=== PATIENT | female | born 1990 | race African-American/Black ===

== ENCOUNTER 2016-10-23 14:35 | Emergency (ER) | payer BC ==
[2016-10-23] MEDS ORDERED: ACETAMINOPHEN 325 MG TABLET PO ONE (14:48)
[2016-10-23] MEDS ORDERED: NORMAL SALINE 1000 ML 1,000 ML IV ONE ×2 (14:55→16:28)
[2016-10-23] MEDS ORDERED: IBUPROFEN 800 MG TABLET PO ONE (14:55)
[2016-10-23] MEDS ORDERED: ONDANSETRON HCL INJ/PF 4 MG/2 ML SDV IV ONE (14:55)
--- NOTE | 2016-10-23 15:09 | ER Document Report ---
ED Fever - General Mode of Arrival: Ambulatory Information source: Patient TRAVEL OUTSIDE OF THE [place] IN LAST 30 DAYS: No - HPI Onset: Yesterday Onset/Duration: Gradual Quality of pain: Achy Pain Level: 4 Associated symptoms: Body/muscle aches, Fever, Nausea, Sweating. denies: Chest pain, Nonproductive cough, Productive cough, Diarrhea, Vomiting, Sore throat Similar symptoms previously: No Recently seen / treated by doctor: No <ISSA PERES - Last Filed: 10/23/16 19:28> <YOMAIRA EATON - Last Filed: 10/23/16 21:28> - General Chief Complaint: Fever Stated Complaint: ABDOMINAL PAIN Time Seen by Provider: 10/23/16 14:54 Notes: Presents complaining of fever and abdominal pain that started yesterday. Patient presents complaining of abdominal pain, back pain, fever and chills. Patient denies any cough or cold symptoms. Patient denies any vomiting. Patient denies any urinary symptoms. Patient denies any sick contacts. (ISSA PERES) - Related Data Allergies/Adverse Reactions: red dye [Red Dye] Allergy (Verified 10/23/16 14:46) Past Medical History - General Information source: Patient - Social History Smoking Status: Never Smoker Chew tobacco use (# tins/day): No Frequency of alcohol use: None Drug Abuse: None Occupation: assistant food service manager Lives with: Family Family History: Reviewed & Not Pertinent Patient has suicidal ideation: No Patient has homicidal ideation: No - Past Medical History Cardiac Medical History: Reports: Hx Hypertension Pulmonary Medical History: Denies: Hx Tuberculosis Renal/ Medical History: Reports: Hx Ovarian Cysts. Denies: Hx Peritoneal Dialysis Malignancy Medical History: Surgical Hx: Negative - Immunizations Hx Diphtheria, Pertussis, Tetanus Vaccination: Yes <ISSA PERES - Last Filed: 10/23/16 19:28> Review of Systems - Review of Systems Constitutional: Fever. denies: Recent illness EENT: No symptoms reported. denies: Nose congestion, Nose discharge, Throat pain Cardiovascular: No symptoms reported. denies: Chest pain Respiratory: No symptoms reported. denies: Cough, Short of breath Gastrointestinal: Abdominal pain, Nausea. denies: Diarrhea, Vomiting Genitourinary: No symptoms reported. denies: Dysuria, Flank pain Female Genitourinary: No symptoms reported. denies: , Vaginal discharge , Vaginal bleeding Musculoskeletal: Back pain Skin: No symptoms reported Hematologic/Lymphatic: No symptoms reported Neurological/Psychological: No symptoms reported <ISSA PERES - Last Filed: 10/23/16 19:28> Physical Exam - General General appearance: Alert In distress: Mild - HEENT Head: Normocephalic, Atraumatic Eyes: Normal Conjunctiva: Normal Nasal: Normal Mouth/Lips: Normal Mucous membranes: Dry Pharynx: Normal. No: Erythema, Exudate, Retropharyngeal abscess Neck: Normal, Supple. No: Lymphadenopathy, Meningismus - Respiratory Respiratory status: No respiratory distress Chest status: Nontender Breath sounds: Normal. No: Rales, Rhonchi, Stridor, Wheezing Chest palpation: Normal - Cardiovascular Rhythm: Tachycardia Heart sounds: S1 appreciated, S2 appreciated Murmur: No - Back Back: CVA tenderness - right mildly tender - Extremities General upper extremity: Normal inspection, Normal ROM General lower extremity: Normal inspection, Normal ROM - Neurological Neuro grossly intact: Yes Cognition: Normal Orientation: AAOx4 [place] Coma Scale Eye Opening: Spontaneous [place] Coma Scale Verbal: Oriented [place] Coma Scale Motor: Obeys Commands [place] Coma Scale Total: 15 - Psychological Associated symptoms: Normal affect, Normal mood - Skin Skin Temperature: Warm <ISSA PERES - Last Filed: 10/23/16 19:28> Course - Laboratory Result Diagrams: 10/23/16 15:25 10/23/16 16:25 <ISSA PERES - Last Filed: 10/23/16 19:28> - Laboratory Result Diagrams: 10/23/16 15:25 10/23/16 16:25 <YOMAIRA EATON - Last Filed: 10/23/16 21:28> - Re-evaluation Re-evalutation: 10/23/16 17:53 Patient is yet to go to ultrasound. RN advised of need for repeated vitals. Patient requesting additional pain medication. 10/23/16 19:31 bedside report and hand off given to ISSA Faye) 10/23/16 21:20 Patient is currently an afebrile, well-hydrated, 26-year-old female who presents to the ED with patient able to tolerate p.o. intake. Abdominal pain not otherwise specified and fever of unknown origin. CBC, CMP, urine, lipase, chest x-ray were unremarkable for acute pathology at this time. Abdominal ultrasound did show some gallbladder sludge with a negative Tay. Reviewed case with Dr. Su who is in agreement with discharge/plan. Low suspicion for any acute appendicitis, bowel obstruction, acute cholecystitis, acute cholangitis, perforated diverticulitis, incarcerated hernia, pancreatitis, perforated ulcer, peritonitis, sepsis, or other acute abdomen at this time. Patient is aware that condition can change from initial presentation and she needs to monitor symptoms closely and seek medical attention if any acute changes. Patient has no new concerns or complaints at this time. Her body aches have improved with a decrease in her temperature. I will send her home with Zantac and Zofran to take as directed/needed. Recommend consult with general surgery for further evaluation of the ultrasound results. Consider consult GI. Recheck with your PCM in 2-3 days. Return to the ED with any worsening/concerning symptoms otherwise as reviewed discharge. Patient is in agreement. (YOMAIRA EATON) - Vital Signs Vital signs: Temp Pulse Resp BP Pulse Ox 98.9 F 103 H 18 124/72 98 10/23/16 17:52 10/23/16 17:52 10/23/16 17:52 10/23/16 17:52 10/23/16 17:52 - Laboratory Laboratory results interpreted by me: 10/23/16 10/23/16 10/23/16 15:25 15:25 15:53 Hct 35.7 L Seg Neutrophils % 78.7 H Lymphocytes % 7.9 L Monocytes % 13.1 H Potassium Lipase 22.3 L Urine Ketones 80 H Urine Blood SMALL H Urine Urobilinogen 2.0 H 10/23/16 16:25 Hct Seg Neutrophils % Lymphocytes % Monocytes % Potassium 3.5 L Lipase Urine Ketones Urine Blood Urine Urobilinogen Discharge <ISSA PERES - Last Filed: 10/23/16 19:28> <YOMAIRA EATON - Last Filed: 10/23/16 21:28> - Discharge Clinical Impression: Fever, unspecified Abdominal pain Qualifiers: Abdominal location: upper abdomen, unspecified Qualified Code(s): R10.10 - Upper abdominal pain, unspecified Condition: Stable Disposition: HOME, SELF-CARE Instructions: Abdominal Pain ([facility]), Gallbladder Disease ([facility]), Antinausea Medication ([facility]), Fever ([facility]) Additional Instructions: Maintain adequate fluid/food intake Take medication as directed Lwjy-[id number] meds as needed Brat diet-bananas, rice, apples, toast, etc.- Call the general surgeon to set up an appointment for further evaluation Consider consult with gastroenterology for ongoing/worsening symptoms as well Recheck with your PCM in 2-3 days Return to the ED with any worsening symptoms and/or development of fever, headache, chest pain, palpitations, syncope, shortness of breath, trouble breathing, worsening abdominal pain, n/v/d, blood in stool/urine, loss of control of bowel/bladder, urinary retention, muscle weakness/paralysis, saddle anesthesia, numbness/tingling, or other worsening symptoms that are concerning to you. Prescriptions: Ondansetron [Zofran Odt 4 mg Tablet] 1 - 2 tab PO Q4H PRN #15 tab.rapdis PRN Reason: For Nausea/Vomiting Ranitidine HCl [Zantac] 150 mg PO BID #30 tablet Referrals: EMELIA MULLINS MD [ACTIVE STAFF] - Follow up as needed JUAN CARLOS ELAVITT MD [ACTIVE STAFF] - Follow up in 3-5 days
[2016-10-23 15:57] LABS: ABSOLUTE LYMPHOCYTES (AUTO) 0.6 10^3/uL (0.5-4.7); BASOPHILS % (AUTO) 0.3 % (0-2); HEMATOCRIT 35.7 % (36.0-47.0); HEMOGLOBIN 12.2 g/dL (12.0-15.5); HGB HCT DIFFERENCE 0.9; LYMPHOCYTES % (AUTO) 7.9 % (13-45); MEAN CORPUSCULAR HEMOGLOBIN 30.6 pg (27.0-33.4); MEAN CORPUSCULAR HGB CONC 34.3 g/dL (32.0-36.0); MEAN CORPUSCULAR VOLUME 89 fl (80-97); MONOCYTES % (AUTO) 13.1 % (3-13); RED CELL DISTRIBUTION WIDTH 12.8 % (11.5-14.0); SEGMENTED NEUTROPHILS % (AUTO) 78.7 % (42-78); VENOUS BLOOD BASE EXCESS -1.8 mmol/L; VENOUS BLOOD HCO3 22.9 mmol/L (20-32); VENOUS BLOOD PCO2 38.2 mmHg (35-63); VENOUS BLOOD PH 7.4 (7.30-7.42); WHITE BLOOD COUNT 7.6 10^3/uL (4.0-10.5)
--- NOTE | 2016-10-23 16:03 | RADIOLOGY REPORT (SQ) ---
EXAM DESCRIPTION: CHEST PA/LAT COMPLETED DATE/TIME: 10/23/2016 3:45 pm REASON FOR STUDY: fever COMPARISON: December 2011 EXAM PARAMETERS: NUMBER OF VIEWS: two views TECHNIQUE: Digital Frontal and Lateral radiographic views of the chest acquired. RADIATION DOSE: NA LIMITATIONS: none FINDINGS: LUNGS AND PLEURA: No opacities, masses or pneumothorax. No pleural effusion. MEDIASTINUM AND HILAR STRUCTURES: No masses or contour abnormalities. HEART AND VASCULAR STRUCTURES: Heart normal size. No evidence for failure. BONES: No acute findings. HARDWARE: None in the chest. OTHER: No other significant finding. IMPRESSION: NO SIGNIFICANT RADIOGRAPHIC FINDING IN THE CHEST. TECHNICAL DOCUMENTATION: JOB ID: [id number] [employer]- All Rights Reserved
[2016-10-23 16:13] LABS: APPEARANCE,URINE SLIGHTLY-CLOUDY; BILIRUBIN,URINE NEGATIVE (NEGATIVE); GLUCOSE, URINE NEGATIVE (NEGATIVE); KETONES,URINE 80 mg/dL (NEGATIVE); LEUKOCYTE ESTERASE,URINE NEGATIVE (NEGATIVE); NITRITE,URINE NEGATIVE (NEGATIVE); PROTEIN,URINE NEGATIVE (NEGATIVE); URINE SPECIFIC GRAVITY 1.029
[2016-10-23 16:54] LABS: ALANINE AMINOTRANSFERASE 23 U/L (9-52); ALBUMIN 3.9 g/dL (3.5-5.0); ALKALINE PHOSPHATASE 84 U/L (38-126); ANION GAP 11 (5-19); ASPARTATE AMINO TRANSFERASE 16 U/L (14-36); BILIRUBIN,DIRECT 0.3 mg/dL (0.0-0.4); BILIRUBIN,TOTAL 0.6 mg/dL (0.2-1.3); BLOOD UREA NITROGEN 9 mg/dL (7-20); CALCIUM 8.5 mg/dL (8.4-10.2); CARBON DIOXIDE 22 mmol/L (22-30); CHLORIDE 105 mmol/L (98-107); CREATININE RESULT 0.56 mg/dL (0.52-1.25); GLUCOSE 90 mg/dL (75-110); POTASSIUM 3.5 mmol/L (3.6-5.0); SODIUM 137.6 mmol/L (137-145); TOTAL PROTEIN 7.4 g/dL (6.3-8.2)
[2016-10-23] MEDS ORDERED: MORPHINE SULFATE 10 MG/ML INJ IV ONE (17:52)
[2016-10-23] MEDS ORDERED: POTASSIUM CHLORIDE 10 MEQ TABLET.SA PO ONE (17:52)
--- NOTE | 2016-10-23 19:15 | RADIOLOGY REPORT (SQ) ---
EXAM DESCRIPTION: U/S ABDOMEN LIMITED W/O DOP COMPLETED DATE/TIME: 10/23/2016 6:45 pm REASON FOR STUDY: epig abd pain, r flank pain COMPARISON: None. TECHNIQUE: Dynamic and static grayscale images acquired of the abdomen and recorded on PACS. Additio nal selected color Doppler and spectral images recorded. LIMITATIONS: None. FINDINGS: PANCREAS: Obscured by overlying bowel gas. LIVER: No masses. Echotexture normal. LIVER VASCULATURE: Normal directional flow of the main portal vein and hepatic veins. GALLBLADDER: No stones. There is gallbladder sludge. ULTRASOUND-DETECTED ALVES'S SIGN: Negative. INTRAHEPATIC DUCTS AND COMMON DUCT: CBD and intrahepatic ducts normal caliber. No filling defects. INFERIOR VENA CAVA: Normal flow. AORTA: The majority aorta is obscured by overlying bowel gas. RIGHT KIDNEY: There is a prominent extrarenal pelvis on the right. No hydronephrosis. PERITONEAL AND RIGHT PLEURAL SPACE: No ascites or effusions. OTHER: No other significant findings. IMPRESSION: Gallbladder sludge. No acute findings. TECHNICAL DOCUMENTATION: JOB ID: [id number] [employer]- All Rights Reserved
[2016-10-23 19:44] LABS: ADD ON TESTING BLD IN LAB ACKNOWLEDGE
[2016-10-23 20:00] LABS: LIPASE 22.3 U/L (23-300)
[2016-10-23 21:44] VITALS: BP 121/80
--- NOTE | 2016-10-24 12:56 | EKG REPORT ---
SEVERITY:- OTHERWISE NORMAL ECG - SINUS TACHYCARDIA : Confirmed by: Cooper Soto 24-Oct-2016 12:54:52
== END 2016-10-23 21:46 | disposition home or self-care (01) ==
LOC: ER 14:35
DX: R50.9 Fever, unspecified (principal); K82.8 Other specified diseases of gallbladder; R10.10 Upper abdominal pain, unspecified; R61 Generalized hyperhidrosis; R11.0 Nausea; M54.9 Dorsalgia, unspecified; Z91.048 Other nonmedicinal substance allergy status; I10 Essential (primary) hypertension; Z87.42 Personal history of other diseases of the female genital tract; Z79.1 Long term (current) use of non-steroidal anti-inflammatories (NSAID)
CPT/HCPCS: 93005; 99285; 96361; 96374; 96375; 36415; 87040; 87086; 83690; 84703; 85025; 85610; 80053; 81001; 82803; 83605; 71020; 76705; 93010; J2270; J2405; J7030

== ENCOUNTER 2016-11-12 08:15 | Day surgery (SDC) | payer BC ==
[2016-11-12] MEDS ORDERED: LIDOCAINE 2% INJ-PF (20 MG/ML) 10 ML AMPUL ONE (10:10)
[2016-11-12] MEDS ORDERED: PROPOFOL INJ 200 MG/20 ML VIAL IV ONE (10:10)
[2016-11-12] MEDS ORDERED: ONDANSETRON HCL INJ/PF 4 MG/2 ML SDV ONE (10:10)
[2016-11-12] MEDS ORDERED: MEPERIDINE HCL/PF INJ 25 MG/1 ML DISP.SYRIN IV PRN (10:32)
[2016-11-12] MEDS ORDERED: PROMETHAZINE HCL INJ 25 MG/1 ML VIAL IV PRN ×2 (10:32)
[2016-11-12] MEDS ORDERED: DIPHENHYDRAMINE HCL 50 MG/ML VIAL IV PRN (10:32)
[2016-11-12] MEDS ORDERED: ONDANSETRON HCL INJ/PF 4 MG/2 ML SDV IV PRN (10:32)
[2016-11-12] MEDS ORDERED: FENTANYL CITRATE INJ/PF 100 MCG/2 ML AMPUL IV PRN ×3 (10:32)
--- NOTE | 2016-11-12 11:10 | Operative Report ---
Operative Report DATE OF SURGERY: 11/12/16 Operative Report: The risks, benefits and alternatives of the procedure including risks of bleeding, perforation requiring surgery are explained to the patient detail and informed consent was obtained. Patient is taken back to the operating room and placed in the left, lateral decubital position. Timeout was called. Propofol medications administered. A rectal examination is done which did not reveal any masses, tears or fissures. An Olympus videoscope was inserted into the patient's rectum. Scope was then carefully advanced all the way to the cecum. The cecum was identified by the usual anatomical landmarks including the ileocecal valve as well as the appendiceal office. Photodocumentation was obtained. The scope was then sequentially pulled back via the various segments of the colon including the ascending colon, hepatic flexure, transverse colon, splenic flexure, descending colon and to the rectosigmoid portions of the colon. Retroflexion maneuver was performed. The risks benefits and alternatives of the procedure explained to the patient in detail and informed consent is obtained.A GIF Olympus video scope was inserted into the patient's mouth and hypopharynx, the esophagus is identified intubated and insufflated ,the scope was then advanced through the esophagus stomach and duodenum ,retroflexion maneuver is done, the esophagus stomach and first and second portions of the duodenum examined PREOPERATIVE DIAGNOSIS: Epigastric pain rule out peptic ulcer disease. Change in bowel habits. Blood in stool POSTOPERATIVE DIAGNOSIS: Mild right side inflammation status post biopsy. Internal hemorrhoids. Mild gastritis status post biopsy rule out Helicobacter pylori OPERATION: Colonoscopy with biopsy. EGD with biopsy SURGEON: EMELIA MULLINS ANESTHESIA: LMAC TISSUE REMOVED OR ALTERED: As discussed above. COMPLICATIONS: None. ESTIMATED BLOOD LOSS: None. INTRAOPERATIVE FINDINGS: As described above. PROCEDURE: Patient tolerated procedure well. No immediate postprocedure complications are noted. Patient discharged in good condition. Discharge date 11/12/2016. Discharge diet: Regular. Discharge activity: Regular. 2-3 week follow-up to discuss findings. Patient is instructed to call the office or proceed to the emergency room should there be any further problems or questions. We will wait on pathology.
[2016-11-12 12:30] VITALS: BP 140/86
== END 2016-11-12 12:30 | disposition home or self-care (01) ==
LOC: OROUT 08:15
PROVIDERS: ATTEND Internal Medicine Gastroenterology
PROC: 0DB68ZX Excision of Stomach, Via Natural or Artificial Opening Endoscopic, Diagnostic (ICD-10-PCS; principal; 2016-11-12 10:00)
PROC: 0DBF8ZX Excision of Right Large Intestine, Via Natural or Artificial Opening Endoscopic, Diagnostic (ICD-10-PCS; 2016-11-12 10:00)
DX: K52.9 Noninfective gastroenteritis and colitis, unspecified (principal); K64.8 Other hemorrhoids; K29.70 Gastritis, unspecified, without bleeding; K82.8 Other specified diseases of gallbladder; D64.9 Anemia, unspecified; K21.9 Gastro-esophageal reflux disease without esophagitis; Z79.899 Other long term (current) drug therapy
CPT/HCPCS: 43239; 45380; 81025; 88342 ×2; 88305 ×2; J2405; J2704; J3490; 740

== ENCOUNTER → 2017-09-30 | Outpatient (CLI) | payer BC ==
[2017-09-30 12:00] LABS: INTERNATIONAL RATION (INR) 1.01; PROTHROMBIN TIME 13.8 SEC (11.4-15.4)
[2017-09-30 12:01] LABS: PARTIAL THROMBOPLASTIN TIME 31.1 SEC (23.5-35.8)
== END ==
LOC: OD 10:41
PROVIDERS: ATTEND Obstetrics & Gynecology
DX: R23.3 Spontaneous ecchymoses (principal)
CPT/HCPCS: 36415; 85610; 85730

== ENCOUNTER 2018-05-23 07:45 | Emergency (ER) | payer BC ==
--- NOTE | 2018-05-23 08:06 | ER Document Report ---
ED GI/ - General Chief Complaint: Pelvic Pain Stated Complaint: PELVIC PAIN, BACK PAIN Time Seen by Provider: 05/23/18 08:04 Primary Care Provider: ARJUN DELGADO MD [Primary Care Provider] - Follow up as needed Mode of Arrival: Ambulatory Information source: Patient Notes: Patient is a 28-year-old female, G0 who presents to the ER today for left-sided pelvic pain/lower abdominal pain. Patient states that she was diagnosed with a left ovarian cyst 2 days ago at the [facility], she comes in for continued pain. She states that they gave her naproxen and she has been taking that. She denies any abnormal vaginal discharge, vaginal bleeding, fevers or chills, nausea or vomiting. TRAVEL OUTSIDE OF THE [place] IN LAST 30 DAYS: No - Related Data Allergies/Adverse Reactions: red dye [Red Dye] Allergy (Verified 10/23/16 14:46) Past Medical History - General Information source: Patient - Social History Smoking Status: Unknown if Ever Smoked Family History: Reviewed & Not Pertinent - Past Medical History Cardiac Medical History: Denies: Hx Coronary Artery Disease, Hx Heart Attack, Hx Hypertension Pulmonary Medical History: Denies: Hx Asthma, Hx Bronchitis, Hx COPD, Hx Pneumonia, Hx Tuberculosis Neurological Medical History: Denies: Hx Cerebrovascular Accident, Hx Seizures Renal/ Medical History: Reports: Hx Ovarian Cysts. Denies: Hx Peritoneal Dialysis Malignancy Medical History: Musculoskeletal Medical History: Denies Hx Arthritis Past Surgical History: Denies: Hx Appendectomy, Hx Bowel Surgery, Hx Section, Hx Cholecystectomy, Hx Coronary Artery Bypass Graft, Hx Gastric Bypass Surgery, Hx Herniorrhaphy, Hx Hysterectomy, Hx Mastectomy, Hx Pacemaker, Hx Tonsillectomy, Hx Tubal Ligation - Immunizations Hx Diphtheria, Pertussis, Tetanus Vaccination: Yes Review of Systems - Review of Systems Constitutional: No symptoms reported EENT: No symptoms reported Cardiovascular: No symptoms reported Respiratory: No symptoms reported Gastrointestinal: No symptoms reported Genitourinary: No symptoms reported Female Genitourinary: See HPI Musculoskeletal: No symptoms reported Skin: No symptoms reported Hematologic/Lymphatic: No symptoms reported Neurological/Psychological: No symptoms reported Physical Exam - Vital signs Vitals: Temp Pulse Resp BP Pulse Ox 98.9 F 95 16 131/85 H 100 05/23/18 07:52 05/23/18 07:52 05/23/18 07:52 05/23/18 07:52 05/23/18 07:52 - Notes Notes: PHYSICAL EXAMINATION: GENERAL: Uncomfortable appearing, but in no acute distress. HEAD: Atraumatic, normocephalic. EYES: Pupils equal round and reactive to light, extraocular movements intact, sclera anicteric, conjunctiva are normal. NECK: Normal range of motion, supple without lymphadenopathy LUNGS: CTAB and equal. No wheezes rales or rhonchi. HEART: Regular rate and rhythm without murmurs ABDOMEN: Soft, left lower quadrant tenderness. No guarding, no rebound Pelvic: Normal-appearing cervix, white discharge vaginal canal, no rash, no cervical motion tenderness, left adnexal tenderness BACK: no vertebral tenderness, normal ROM GI/: no CVA tenderness EXTREMITIES: Normal range of motion, no pitting edema. No cyanosis. NEUROLOGICAL: Cranial nerves grossly intact. Normal sensory/motor exams. PSYCH: Normal mood, normal affect. SKIN: Warm, Dry, normal turgor, no rashes or lesions noted Course - Re-evaluation Re-evalutation: 05/23/18 10:32 Ultrasound reveals a left ovarian cyst, simple, complex right ovarian cyst, she is not having any pain on the right side, patient is asleep when I walked into the room, I startled her awake by walking and then she starts shaking all over, she has been shaking every time I walk into the room on this visit. I am not sure why she is shaking her legs so much, I did ask her why she shakes when I walk into the room when I can obviously see that she is not shaking walking by the room, she does not have an answer for this. I advised that she follow-up with [facility] tomorrow. Wet prep negative, gonorrhea and chlamydia negative. Urinalysis negative for sign of infection. negative. - Vital Signs Vital signs: Temp Pulse Resp BP Pulse Ox 98.9 F 95 16 131/85 H 100 05/23/18 07:52 05/23/18 07:52 05/23/18 07:52 05/23/18 07:52 05/23/18 07:52 - Laboratory Laboratory results interpreted by me: 05/23/18 08:05 Urine Blood SMALL H Discharge - Discharge Clinical Impression: Left ovarian cyst, Right ovarian cyst Condition: Stable Disposition: HOME, SELF-CARE Additional Instructions: Return immediately for any new or worsening symptoms. Follow up with primary care provider, call tomorrow to make followup yoan ointment. Prescriptions: Ibuprofen [Motrin 600 Mg Tablet] 600 mg PO TID #15 tablet Referrals: ARJUN DELGADO MD [Primary Care Provider] - Follow up as needed
[2018-05-23] MEDS ORDERED: IBUPROFEN 800 MG TABLET PO ONE (08:28)
[2018-05-23 08:33] LABS: T.VAGINALIS (WET MOUNT) NO TRICHOMONAS SEEN; WBCS (WET MOUNT) FEW WBCS SEEN; YEAST (WET MOUNT) NO YEAST SEEN
[2018-05-23 08:39] LABS: APPEARANCE,URINE CLEAR; BILIRUBIN,URINE NEGATIVE (NEGATIVE); COLOR,URINE YELLOW; GLUCOSE, URINE NEGATIVE (NEGATIVE); KETONES,URINE NEGATIVE (NEGATIVE); LEUKOCYTE ESTERASE,URINE NEGATIVE (NEGATIVE); NITRITE,URINE NEGATIVE (NEGATIVE); PROTEIN,URINE NEGATIVE (NEGATIVE); URINE SPECIFIC GRAVITY 1.012; UROBILINOGEN,URINE NEGATIVE mg/dL (<2.0)
--- NOTE | 2018-05-23 10:23 | RADIOLOGY REPORT (SQ) ---
EXAM DESCRIPTION: U/S NON-OB PELVIS TV W/O DOP COMPLETED DATE/TIME: 05/23/2018 9:51 am REASON FOR STUDY: worsening llq pain after being diagnosed with cyst COMPARISON: 11/15/2015 TECHNIQUE: Dynamic and static grayscale images acquired of the pelvis via transvaginal approach and recorded on PACS. Additional selected color Doppler and spectral images recorded. LIMITATIONS: None. FINDINGS: UTERUS: Contour normal. No mass. ENDOMETRIAL STRIPE: No focal or generalized thickening. No masses. CERVIX: No nabothian cysts. RIGHT OVARY AND DOPPLER: Thick-walled cystic lesion with internal septations measuring about 4.2 x 3. 3 x 3.5 cm. Normal arterial flow. LEFT OVARY AND DOPPLER: 3.7 x 2.5 x 2.5 cm simple appearing cyst. Normal arterial flow. FREE FLUID: Small amount right adnexum. OTHER: No other significant finding. MEASUREMENTS: UTERUS: 7.1 x 3.5 x 5.3 cm ENDOMETRIAL STRIPE: 6 mm RIGHT OVARY: 5.6 x 4.2 x 4.7 cm LEFT OVARY: 5.2 x 2.8 x 3.3 cm IMPRESSION: Simple cyst left ovary. Complex cyst right ovary. TECHNICAL DOCUMENTATION: JOB ID: [id number] [employer]- All Rights Reserved Rev-07/31 Reading location - IP/workstation name: [email or web address]
[2018-05-23 10:25] LABS: CHLAM PCR NOT DETECTED (NOT DETECT); GON PCR NOT DETECTED (NOT DETECT)
[2018-05-23 10:41] VITALS: BP 114/83
== END 2018-05-23 10:41 | disposition home or self-care (01) ==
LOC: ER 07:45
DX: N83.202 Unspecified ovarian cyst, left side (principal); N83.201 Unspecified ovarian cyst, right side; R10.2 Pelvic and perineal pain; R10.30 Lower abdominal pain, unspecified
CPT/HCPCS: 76830; 81001; 81025; 87210; 87491; 87591; 99284

== ENCOUNTER → 2018-09-30 | Outpatient (CLI) | payer BC ==
--- NOTE | 2018-09-30 08:24 | WOMENS IMAGING REPORT ---
EXAM DESCRIPTION: U/S ABDOMEN LIMITED COMPLETED DATE/TIME: 09/30/2018 8:13 am REASON FOR STUDY: R10.13 EPIGASTRIC PAIN R10.13 EPIGASTRIC PAIN COMPARISON: CT abdomen pelvis 10/21/2011, abdominal ultrasound 10/23/2016 hazy previously used TECHNIQUE: Dynamic and static grayscale images acquired of the abdomen and recorded on PACS. Additio nal selected color Doppler and spectral images recorded. LIMITATIONS: Midline bowel gas. FINDINGS: PANCREAS: Midline pancreas unremarkable LIVER: No masses. Echotexture normal. LIVER VASCULATURE: Normal directional flow of the main portal vein and hepatic veins. GALLBLADDER: No stones. Normal wall thickness. No pericholecystic fluid. ULTRASOUND-DETECTED ALVES'S SIGN: Negative. INTRAHEPATIC DUCTS AND COMMON DUCT: CBD and intrahepatic ducts normal caliber. No filling defects. INFERIOR VENA CAVA: Not well seen AORTA: Not well seen RIGHT KIDNEY: Normal size. Normal echogenicity. No solid or suspicious masses. No hydronephrosis. No calcifications. PERITONEAL AND RIGHT PLEURAL SPACE: No ascites or effusions. OTHER: No other significant findings. IMPRESSION: NORMAL RIGHT UPPER QUADRANT ULTRASOUND. TECHNICAL DOCUMENTATION: JOB ID: [id number] [employer]- All Rights Reserved Reading location - IP/workstation name: [email or web address]
== END ==
LOC: WI 07:50
PROVIDERS: ATTEND Internal Medicine Gastroenterology
DX: R10.13 Epigastric pain (principal)
CPT/HCPCS: 76705

== ENCOUNTER 2019-11-17 16:54 | Emergency (ER) | payer BC ==
[2019-11-17] MEDS ORDERED: ACETAMINOPHEN 325 MG TABLET PO ONE (18:00)
[2019-11-17] MEDS ORDERED: IBUPROFEN 600 MG TABLET PO ONE (18:00)
--- NOTE | 2019-11-17 18:05 | ER Document Report ---
ED Medical Screen (RME) - General Chief Complaint: Flu Symptoms Stated Complaint: BACK PAIN Time Seen by Provider: 11/17/19 17:55 Primary Care Provider: LYNDSEY KAISER MD [Primary Care Provider] - Follow up as needed Mode of Arrival: Ambulatory Information source: Patient Notes: 29-year-old female patient presented to the emergency department with 1 day history of abdominal pain, back pain, chills, nausea, vomiting and headache. Patient works in fast food. She does report she had a negative rapid COVID-19 today. Abd soft non-tender. I have greeted and performed a rapid initial assessment of this patient. A comprehensive ED assessment and evaluation of the patient, analysis of test results and completion of the medical decision making process will be conducted by additional ED providers. I have specifically instructed the patient or family members with the patient to immediately return to any nursing staff should anything change in the patient's condition or with their chief complaint. TRAVEL OUTSIDE OF THE [place] IN LAST 30 DAYS: No - Related Data Allergies/Adverse Reactions: red dye [Red Dye] Allergy (Verified 12/27/18 17:41) Past Medical History - Social History Chew tobacco use (# tins/day): No Frequency of alcohol use: None Drug Abuse: None - Past Medical History Cardiac Medical History: Denies: Hx Coronary Artery Disease, Hx Heart Attack, Hx Hypertension Pulmonary Medical History: Denies: Hx Asthma, Hx Bronchitis, Hx COPD, Hx Pneumonia, Hx Tuberculosis Neurological Medical History: Denies: Hx Cerebrovascular Accident, Hx Seizures Renal/ Medical History: Reports: Hx Ovarian Cysts. Denies: Hx Peritoneal Dialysis Malignancy Medical History: Musculoskeltal Medical History: Denies Hx Arthritis Past Surgical History: Reports: Hx Gynecologic Surgery. Denies: Hx Appendectomy, Hx Bowel Surgery, Hx Section, Hx Cholecystectomy, Hx Coronary Artery Bypass Graft, Hx Gastric Bypass Surgery, Hx Herniorrhaphy, Hx Hysterectomy, Hx Mastectomy, Hx Pacemaker, Hx Tonsillectomy, Hx Tubal Ligation - Immunizations Hx Diphtheria, Pertussis, Tetanus Vaccination: Yes Physical Exam - Vital signs Vitals: Temp Pulse Resp BP Pulse Ox 98.7 F 92 16 142/85 H 100 11/17/19 17:13 11/17/19 17:13 11/17/19 17:13 11/17/19 17:13 11/17/19 17:13 Course - Vital Signs Vital signs: Temp Pulse Resp BP Pulse Ox 98.7 F 92 16 142/85 H 100 11/17/19 17:13 11/17/19 17:13 11/17/19 17:13 11/17/19 17:13 11/17/19 17:13 Doctor's Discharge - Discharge Referrals: LYNDSEY KAISER MD [Primary Care Provider] - Follow up as needed
--- NOTE | 2019-11-17 19:06 | ER Document Report ---
ED General - General Chief Complaint: Flu Symptoms Stated Complaint: BACK PAIN Time Seen by Provider: 11/17/19 17:55 Primary Care Provider: LYNDSEY KAISER MD [Primary Care Provider] - Follow up as needed Mode of Arrival: Ambulatory Information source: Patient Notes: 29-year-old female past medical history significant for migraines presents to the emergency room complaining of sharp left flank pain along with general body aches and chills for the past 2 days. Denies any fevers. Denies any urinary symptoms, denies any cough, denies any recent travel. Denies any COVID-19 exposure. States called her primary care physician was referred for a rapid COVID which she states was negative and referred to the emergency room. Has not been taking anything for her symptoms. TRAVEL OUTSIDE OF THE [place] IN LAST 30 DAYS: No - HPI Pain Level: 3 - Related Data Allergies/Adverse Reactions: red dye [Red Dye] Allergy (Verified 11/17/19 19:10) Past Medical History - General Information source: Patient - Social History Smoking Status: Never Smoker Chew tobacco use (# tins/day): No Frequency of alcohol use: None Drug Abuse: None Family History: Reviewed & Not Pertinent - Past Medical History Cardiac Medical History: Denies: Hx Coronary Artery Disease, Hx Heart Attack, Hx Hypertension Pulmonary Medical History: Denies: Hx Asthma, Hx Bronchitis, Hx COPD, Hx Pneumonia, Hx Tuberculosis Neurological Medical History: Denies: Hx Cerebrovascular Accident, Hx Seizures Renal/ Medical History: Reports: Hx Ovarian Cysts. Denies: Hx Peritoneal Dialysis Malignancy Medical History: Musculoskeletal Medical History: Denies Hx Arthritis Past Surgical History: Reports: Hx Gynecologic Surgery. Denies: Hx Appendectomy, Hx Bowel Surgery, Hx Section, Hx Cholecystectomy, Hx Coronary Artery Bypass Graft, Hx Gastric Bypass Surgery, Hx Herniorrhaphy, Hx Hysterectomy, Hx Mastectomy, Hx Pacemaker, Hx Tonsillectomy, Hx Tubal Ligation - Immunizations Hx Diphtheria, Pertussis, Tetanus Vaccination: Yes Review of Systems - Review of Systems Constitutional: Chills, Malaise EENT: No symptoms reported Cardiovascular: No symptoms reported Respiratory: No symptoms reported Gastrointestinal: No symptoms reported Genitourinary: Flank pain Musculoskeletal: Muscle pain Skin: No symptoms reported Neurological/Psychological: No symptoms reported -: Yes All other systems reviewed and negative Physical Exam - Vital signs Vitals: Temp Pulse Resp BP Pulse Ox 98.7 F 92 16 142/85 H 100 11/17/19 17:13 11/17/19 17:13 11/17/19 17:13 11/17/19 17:13 11/17/19 17:13 - Notes Notes: VITAL SIGNS: Within normal limits. GENERAL: Mild acute distress, non-toxic appearance. HEAD: Normal with no signs of head trauma. EYES: PERRLA, EOMI, conjunctiva normal, no discharge. EARS: Hearing grossly intact. NOSE: Normal. THROAT: Oropharynx is normal. NECK: Normal range of motion, no tenderness, supple, no lymphadenopathy, No adenopathy, no JVD. CHEST: Clear breath sounds bilaterally. No wheezes, rales, or rhonchi. CARDIAC: Regular rate and rhythm. S1 and S2, without murmurs, gallops, or rubs. VASCULAR: No Edema. Peripheral pulses normal and equal in all extremities. ABDOMEN: Normal and soft with no tenderness, no masses or pulsatile masses. No organomegaly. Positive bowel sounds x4. Negative for bilateral CVA tenderness. GENITOURINARY: Normal, No tenderness LYMPATHTIC: No lymphadenopathy noted. MUSCULOSKELETAL: Good range of motion of all major joints. Extremities without clubbing, cyanosis or edema. NEUROLOGICAL: Alert and oriented x 3. No focal sensory or strength deficits. Speech normal. Follows commands appropriately. PSYCHIATRIC: Normal Affect, judgement and mood. SKIN: Normal appearance with no rashes or lesions. Course - Re-evaluation Re-evalutation: 11/17/19 20:47 Patient is resting comfortably she is afebrile. She is nontoxic-appearing, she is able to tolerate p.o. fluids. She is pain-free on exam. States she is fee ling better. She was counseled to rest, push fluids, Tylenol and or Motrin as needed for fever and body aches outpatient follow-up with primary care physician if not improving in 2 to 3 days. Patient was given strict return to the emergency room guidelines. Return for any new or worsening symptoms. All questions were answered. Patient verbalized understanding and agrees with plan of care. - Vital Signs Vital signs: Temp Pulse Resp BP Pulse Ox 98.8 F 80 17 132/78 H 100 11/17/19 21:54 11/17/19 21:54 11/17/19 21:54 11/17/19 21:54 11/17/19 21:54 - Laboratory Result Diagrams: 11/17/19 19:20 11/17/19 19:20 Laboratory results interpreted by me: 11/17/19 11/17/19 11/17/19 19:20 19:20 19:20 Hgb 11.7 L Hct 34.8 L Sodium 134.1 L Creatinine 0.51 L Urine Urobilinogen 2.0 H Discharge - Discharge Clinical Impression: Generalized body aches, Viral illness Condition: Stable Disposition: HOME, SELF-CARE Instructions: Viral Syndrome ([facility]) Additional Instructions: Rest, push fluids, Tylenol and/or Motrin as needed for fevers and/or body aches. Follow-up with your primary care physician if not improving in 2 to 3 days. Return to the emergency room for any new or worsening symptoms. Forms: Parent Work Note, Return to Work Referrals: LYNDSEY KAISER MD [Primary Care Provider] - Follow up as needed
[2019-11-17 19:45] LABS: ABSOLUTE BASOPHILS # (AUTO) 0.1 10^3/uL (0.0-0.2); ABSOLUTE LYMPHOCYTES (AUTO) 1.9 10^3/uL (0.5-4.7); ABSOLUTE MONOCYTES (AUTO) 0.8 10^3/uL (0.1-1.4); ABSOLUTE NEUT (AUTO) 3.6 10^3/uL (1.7-8.2); BASOPHILS % (AUTO) 0.9 % (0-2); EOSINOPHILS % (AUTO) 0.3 % (0-6); HEMATOCRIT 34.8 % (36.0-47.0); HEMOGLOBIN 11.7 g/dL (12.0-15.5); LYMPHOCYTES % (AUTO) 30.3 % (13-45); MEAN CORPUSCULAR HEMOGLOBIN 30.3 pg (27.0-33.4); MEAN CORPUSCULAR HGB CONC 33.7 g/dL (32.0-36.0); MEAN CORPUSCULAR VOLUME 90 fl (80-97); PLATELET COUNT 312 10^3/uL (150-450); RED BLOOD COUNT 3.88 10^6/uL (3.72-5.28); RED CELL DISTRIBUTION WIDTH 13.6 % (11.5-14.0); SEGMENTED NEUTROPHILS % (AUTO) 56.5 % (42-78); TOTAL CELLS COUNTED % (AUTO) 100 %; WHITE BLOOD COUNT 6.4 10^3/uL (4.0-10.5)
[2019-11-17 19:47] LABS: APPEARANCE,URINE CLEAR; BILIRUBIN,URINE NEGATIVE (NEGATIVE); COLOR,URINE YELLOW; GLUCOSE, URINE NEGATIVE (NEGATIVE); KETONES,URINE NEGATIVE (NEGATIVE); LEUKOCYTE ESTERASE,URINE NEGATIVE (NEGATIVE); NITRITE,URINE NEGATIVE (NEGATIVE); PROTEIN,URINE NEGATIVE (NEGATIVE); URINE SPECIFIC GRAVITY 1.016
[2019-11-17 20:00] LABS: A TYPE INFLUENZA AG NEGATIVE (NEGATIVE); B INFLUENZA AG NEGATIVE (NEGATIVE)
[2019-11-17 20:10] LABS: ALBUMIN 4.1 g/dL (3.5-5.0); ALKALINE PHOSPHATASE 72 U/L (38-126); ANION GAP 8 (5-19); ASPARTATE AMINO TRANSFERASE 19 U/L (14-36); BILIRUBIN,DIRECT 0.3 mg/dL (0.0-0.4); BILIRUBIN,TOTAL 0.8 mg/dL (0.2-1.3); BLOOD UREA NITROGEN 9 mg/dL (7-20); CALCIUM 8.9 mg/dL (8.4-10.2); CARBON DIOXIDE 26 mmol/L (22-30); CHLORIDE 100 mmol/L (98-107); GLUCOSE 95 mg/dL (75-110); POTASSIUM 3.7 mmol/L (3.6-5.0); TOTAL PROTEIN 7.4 g/dL (6.3-8.2)
[2019-11-17] MEDS ORDERED: HYDROCODONE/ACETAMINOPHEN 5-325 MG TABLET PO ONE (20:14)
[2019-11-17 21:55] VITALS: BP 132/78
== END 2019-11-17 21:54 | disposition home or self-care (01) ==
LOC: ER 16:54
DX: B34.9 Viral infection, unspecified (principal); R10.9 Unspecified abdominal pain; R68.83 Chills (without fever); M79.10 Myalgia, unspecified site; R53.81 Other malaise; Z91.048 Other nonmedicinal substance allergy status
CPT/HCPCS: 36415; 80053; 81001; 81025; 83690; 85025; 87804; 99283